=== PATIENT | male | born 1955 | race Two or more races ===

== ENCOUNTER 2019-06-10 06:39 | Inpatient (IN) | payer OTHER ==
[~2019-06-10] VITALS: Ht 165.1 cm; Wt 84.0 kg
--- NOTE | 2019-06-10 07:46 | NUR ---
BRINGS IN PT FOR C/O SUDDEN ONSET CONSTANT PAIN TO RT LOWER QUAD FOR TWO DAYS WITHMILD NAUSEA, +FEVERS/CHILLS, DENIES DYSURIA/HEMTURIA, ALTHOUGH URINE WAS CHRISTOPHER IN COLOR WHEN COLLECTED. RESP EVEN AND UNLABORED,ON RA @99%. ABD ROUND/SOFT, TENDER TO PALPATION. SKIN W/D/I
[2019-06-10 08:23] LABS: PLATELET COUNT 220 x10^3mcL (130-400); RED CELL DISTRIBUTION WIDTH 13.2 % (11.5-14.5)
[2019-06-10 08:28] LABS: CALCIUM 8.7 mg/dL (8.5-10.1); CARBON DIOXIDE 26.5 mmol/L (21-32); CHLORIDE SERUM 99 mmol/L (98-107); CREATININE SERUM 0.8 mg/dL (0.7-1.3); GFR1 > 60 mL/min; GLUCOSE SERUM 112 mg/dL (74-106); POTASSIUM SERUM 3.6 mmol/L (3.5-5.1); SODIUM SERUM 132 mmol/L (136-145)
[2019-06-10 08:35] LABS: BASOPHIL % 0 % (0-2)
[2019-06-10 08:41] LABS: ALKALINE PHOSPHATASE 130 U/L (46-116); ALT/SGPT 25 U/L (16-63); AST/SGOT 13 U/L (15-37); BILIRUBIN TOTAL 2.4 mg/dL (0.20-1.00); LIPASE 91 IU/L (73-393); T4(THYROXINE) 7.4 ug/dL (4.7-13.3); TOTAL PROTEIN, SERUM 7.3 g/dL (6.4-8.2)
[2019-06-10 08:42] LABS: ALBUMIN 2.8 g/dL (3.4-5.0)
--- NOTE | 2019-06-10 08:48 | NUR ---
REPORT GIVEN TO MAKEDA SANTANA, UPDATEDON STATUS, LABS AND VITALS. PT STABLE FOR TRANSFER.
--- NOTE | 2019-06-10 09:19 | NUR ---
RECEIVED PT FROM ER, VIA [facility]. PT A/A, BREATHING EQUAL/UNLABORED ON RA. PT STATES HE HAS PAIN TO HIS ABDOMEN. VITALS WNL. IV SITE WNL. BED IN LOW POSITION, CALL LIGHT IN REACH, SAFETY PRECAUTIONS IN PLACE, AT BEDSIDE. WILL CONTINUE TO MONITOR
[2019-06-10 09:24] VITALS: BP 99/61
[2019-06-10 09:32] LABS: microscopic required? YES
[2019-06-10 09:34] LABS: urine erythrocyte 1+ (NEGATIVE)
[2019-06-10 11:17] VITALS: BP 100/60
--- NOTE | 2019-06-10 11:43 | NUR ---
PT LYING IN BED A/A. BREATHING EQUAL/UNLABORED ON RA. NO ACUTE CHANGES. PT STATES HE HAS MILD PAIN THAT IS TOLERABLE. WILL CONTINUE TO MONITOR
[2019-06-10 16:30] VITALS: BP 108/64
--- NOTE | 2019-06-10 18:33 | NUR ---
PT LYING IN BED A/A. BREATHING EQUAL/UNLABORED ON RA. PT STATES HE HAS MILD PAIN TO RLQ, STATES HE DOES NOT WANT PAIN MEDS AT THIS TIME. IVF RUNNING, SITES WNL. BED IN LOW POSITION, CALL LIGHT IN REACH, SAFETY PRECAUTIONS IN PLACE, FAMILY AT BEDSIDE. WILL ENDORSE TO NIGHT NURSE
--- NOTE | 2019-06-10 19:25 | NUR ---
CARE ASSUMED FROM OUTGOING RN. PT RESTING COMFORTABLY IN BED. FAMILY AT BEDSIDE. NO ACUTE DISTRESS NOTED. EVEN AND UNLABORED RESPIRATIONS ON RA. ON TELE# [address] 97. IV PATENT RUNNING FLUIDS PER EMAR. NO C/O PAIN AT THIS TIME. BED IN LOWEST POSITION. SIDE RAILS UPX2. CALL LIGHT WITHIN REACH. WILL CONTINUE TO MONITOR.
[2019-06-10 19:40] VITALS: BP 108/64
--- NOTE | 2019-06-10 23:54 | NUR ---
PT AMBULATED TO THE RESTROOM WITH SLOW, STEADY GAIT. NO C/O HEADACHE OR DIZZINESS. C/O 5/10 ABD PAIN, MEDICATED PER EMAR. EVEN AND UNLABORED RESPIRATIONS ON RA. ON TELE# [address] 101. IVS PATENT AND INTACT RUNNING FLUIDS PER EMAR. NPO IN PLACE. BED IN LOWEST POSITION. SIDE RAILS UPX2. CALL LIGHT WITHIN REACH. WILL CONTINUE TO MONITOR.
[2019-06-11 05:20] VITALS: BP 108/62
--- NOTE | 2019-06-11 06:12 | NUR ---
PT SLEPT COMFORTABLY IN INTERVALS THROUGHOUT THE SHIFT. ALL NEEDS TENDED TO AND MET. ALL SCHEDULED MEDICATIONS GIVEN. C/O ABD PAIN MEDICATED PER EMAR. EVEN AND UNLABORED RESPIRATIONS ON RA. IV PATENT AND INTACT RUNNING FLUIDS PER EMAR. NPO IN PLACE. ON TELE # [address] 80. BED IN LOWEST POSITION. SIDE RAILS UPX2. CALL LIGHT WITHIN REACH. WILL ENDORSE TO ONCOMING SHIFT.
[2019-06-11 06:30] LABS: BASOPHIL % 0.3 % (0-2); PLATELET COUNT 234 x10^3mcL (130-400); RED CELL DISTRIBUTION WIDTH 13.1 % (11.5-14.5)
--- NOTE | 2019-06-11 07:07 | NUR ---
RECEIVED PT LYING IN BED A/A. BREATHING EQUAL/UNLABORED ON RA. PT HAS MILD PAIN TO RLQ OF ABDOMEN, STATES PAIN IS TOLERABLE. IVF RUNNING, SITE WNL. BED IN LOW POSITION, CALL LIGHT IN REACH, SAFETY PRECAUTIONS IN PLACE. WILL CONTINUE TO MONITOR
[2019-06-11 07:10] LABS: ALKALINE PHOSPHATASE 125 U/L (46-116); ALT/SGPT 22 U/L (16-63); AST/SGOT 16 U/L (15-37); CALCIUM 8.4 mg/dL (8.5-10.1); CARBON DIOXIDE 22.6 mmol/L (21-32); CHLORIDE SERUM 99 mmol/L (98-107); CREATININE SERUM 0.7 mg/dL (0.7-1.3); GFR1 > 60 mL/min; GLUCOSE SERUM 116 mg/dL (74-106); MAGNESIUM 2.3 mg/dL (1.8-2.4); POTASSIUM SERUM 3.4 mmol/L (3.5-5.1); SODIUM SERUM 130 mmol/L (136-145); TOTAL PROTEIN, SERUM 6.4 g/dL (6.4-8.2)
[2019-06-11 07:13] LABS: ALBUMIN 2.1 g/dL (3.4-5.0)
[2019-06-11 07:30] VITALS: BP 118/66
[2019-06-11 11:01] VITALS: BP 96/69
--- NOTE | 2019-06-11 11:50 | NUR ---
PT LYING IN BED A/A. BREATHING EQUAL/UNLABORED ON RA. NO ACUTE CHANGES OR DISTRESS. WILL CONTINUE TO MONITOR
[2019-06-11 16:02] VITALS: BP 123/80
--- NOTE | 2019-06-11 18:28 | NUR ---
PT LYING IN BED A/A. BREATHING EQUAL/UNLABORED ON RA. NO ACUTE PAIN/ DISTRESS. IVF RUNNINNG, SITES WNL. BED IN LOW POSITION, CALL LIGHT IN REACH, SAFETY PRECAUTIONS IN PLACE, FAMILY AT BEDSIDE. WILL ENDORSE TO NIGHT NURSE
--- NOTE | 2019-06-11 19:00 | NUR ---
CARE ASSUMED FROM OUTGOING RN. PT RESTING COMFORTABLY IN BED. NO ACUTE DISTRESS NOTED. EVEN AND UNLABORED RESPIRATIONS ON RA. ON TELE# [address] 106. IVS PATENT AND INTACT RUNNING FLUIDS PER EMAR. C/O SLIGHT DISCOMFORT TO ABD, NO PAIN MEDICATION NEEDED AT THIS TIME. TOLERATED CLEAR LIQUID DIET. BED IN LOWEST POSITION. SIDE RAILS UPX2. CALL LIGHT WITHIN REACH. WILL CONTINUE TO MONITOR.
[2019-06-11 19:06] VITALS: BP 120/78
--- NOTE | 2019-06-12 01:29 | NUR ---
C/O 09/08 ABD PAIN, MEDICATED PER EMAR. IVPB STARTED PER EMAR. EVEN AND UNLABORED RESPIRATIONS ON RA. ON TELE #[address] 89. BED IN LOWEST POSITION. SIDE RAILS UPX2. CALL LIGHT WITHIN REACH. WILL REASSESS FOR PAIN AND CONTINUE TO MONITOR.
[2019-06-12 03:56] VITALS: BP 99/66
--- NOTE | 2019-06-12 05:59 | NUR ---
PT SLEPT COMFORTABLY IN INTERVALS THROUGHOUT THE SHIFT. ALL NEEDS TENDED TO AND MET. ALL SCHEDULED MEDICATIONS GIVEN. C/O ABD PAIN MEDICATED PER EMAR. ON TELE# [address] 97[address] IVS PATENT AND INTACT RUNNING FLUIDS PER EMAR. EVEN AND UNLABORED RESPIRATIONS ON RA. BED IN LOWEST POSITION. SIDE RAILS UPX2. CALL LIGHT WITHIN REACH. WILL ENDORSE TO ONCOMING SHIFT.
[2019-06-12 06:52] LABS: BASOPHIL % 0.3 % (0-2); PLATELET COUNT 272 x10^3mcL (130-400); RED CELL DISTRIBUTION WIDTH 13.4 % (11.5-14.5)
--- NOTE | 2019-06-12 07:06 | NUR ---
RECEIVED PT LYING IN BED A/A. BREATHING EQUAL/UNLABORED ON RA. NO ACUTE PAIN/ DISTRESS. IVF RUNNING, SITES WNL. BED IN LOW POSITION, CALL LIGHT IN REACH, SAFETY PRECAUTIONS IN PLACE. WILL CONTINUE TO MONITOR
[2019-06-12 08:01] VITALS: BP 110/71
--- NOTE | 2019-06-12 11:48 | NUR ---
PT LYING IN BED A/A. BREATHING EQUAL/UNLABORED ON RA. NO ACUTE CHANGES/ DISTRESS. IVF RUNNING, SITE WNL. WILL CONTINUE TO MONITOR
[2019-06-12 12:01] VITALS: BP 112/77
[2019-06-12 16:20] VITALS: BP 125/78
--- NOTE | 2019-06-12 18:30 | NUR ---
PT LYING IN BED A/A. BREATHING EQUAL/UNLABORED ON RA. NO ACUTE PAIN/ DISTRESS. IVF RUNNING, SITE WNL. BED IN LOW POSITION, CALL LIGHT IN REACH, SAFETY PRECAUTIONS IN PLACE, AT BEDSIDE. WILL ENDORSE TO NIGHT NURSE
--- NOTE | 2019-06-12 19:05 | NUR ---
CARE ASSUMED FROM OUTGOING RN. PT RESTING COMFORTABLY IN BED. AT BEDSIDE. NO ACUTE DISTRESS NOTED. EVEN AND UNLABORED RESPIRATIONS ON RA. ON TELE# [address] 86[address] IVS PATENT AND INTACT. NO C/O PAIN AT THIS TIME. BED IN LOWEST POSITION. SIDE RAILS UPX2. CALL LIGHT WITHIN REACH. WILL CONTINUE TO MONITOR.
[2019-06-12 19:10] VITALS: BP 115/75
--- NOTE | 2019-06-13 00:34 | NUR ---
PT RESTING COMFORTABLY IN BED WITH EYES CLOSED. NO ACUTE DISTRESS NOTED. EVEN AND UNLABORED RESPIRATIONS ON RA. ON TELE# [address] 90. IVS PATENT AND INTACT. BED IN LOWEST POSITION. SIDE RAILS UPX2. CALL LIGHT WITHIN REACH. WILL CONTINUE TO MONITOR.
[2019-06-13 04:58] VITALS: BP 115/71
--- NOTE | 2019-06-13 06:16 | NUR ---
PT RESTING COMFORTABLY IN INTERVALS THROUGHOUT THE SHIFT. ALL NEEDS TENDED TO AND MET. ALL SCHEDULED MEDICATIONS GIVEN. EVEN AND UNLABORED RESPIRATIONS ON RA. ON TELE# [address] 90. IV TO RFA PATENT AND INTACT. LAC LEAKING, DC'ED, CATHETER INTACT, NO BLEEDING NOTED. C/O ABD PAIN MEDICATED PER EMAR. BED IN LOWEST POSITION. SIDE RAILS UPX2. CALL LIGHT WITHIN REACH. WILL ENDORSE TO ONCOMING SHIFT.
[2019-06-13 06:50] LABS: BASOPHIL % 0.1 % (0-2); PLATELET COUNT 300 x10^3mcL (130-400); RED CELL DISTRIBUTION WIDTH 13.6 % (11.5-14.5)
--- NOTE | 2019-06-13 07:00 | NUR ---
AAO TIMES 4. TELE # 24 SR. LUNGS CTA. NO SOB. O2 SAT ON RA 95%. BS'S ACTIVE TIMES 4. QUEZADA STRONG. IV SITE CDI. COOPERATIVE AND PLEASANT. NO SOB. DENIES DISCOMFORT. PERIPHERAL PULSES PALPABLE. NO EDEMA.
[2019-06-13 07:06] LABS: ALKALINE PHOSPHATASE 177 U/L (46-116); ALT/SGPT 15 U/L (16-63); AST/SGOT 15 U/L (15-37); BILIRUBIN TOTAL 0.74 mg/dL (0.20-1.00); CALCIUM 8.2 mg/dL (8.5-10.1); CARBON DIOXIDE 25.1 mmol/L (21-32); CHLORIDE SERUM 100 mmol/L (98-107); CREATININE SERUM 0.7 mg/dL (0.7-1.3); GFR1 > 60 mL/min; GLUCOSE SERUM 122 mg/dL (74-106); MAGNESIUM 1.9 mg/dL (1.8-2.4); POTASSIUM SERUM 3.3 mmol/L (3.5-5.1); SODIUM SERUM 136 mmol/L (136-145); TOTAL PROTEIN, SERUM 6.5 g/dL (6.4-8.2)
[2019-06-13 07:08] LABS: ALBUMIN 2.2 g/dL (3.4-5.0)
[2019-06-13 09:00] VITALS: BP 126/70
[2019-06-13] MEDS ORDERED: CIPRO500 MG PO (09:31)
[2019-06-13] MEDS ORDERED: FLA500 PO (09:31)
[2019-06-13 12:13] VITALS: BP 118/66
[2019-06-13 13:01] VITALS: BP 118/66
--- NOTE | 2019-06-13 16:10 | NUR ---
DR CORTES AWARE DR CASE SURGEON WAS RECOMENDING STAYING FOR ANTIBIOTICS AND LABS FOR TOMORROW DUE TO WBC INCREASING AND TEMP YESTERDAY OF 100.2.
--- NOTE | 2019-06-13 16:32 | NUR ---
DR CORTES SAID TO HOLD TH DISCHARGE FOR TODAY.
[2019-06-13 16:43] VITALS: BP 114/71
--- NOTE | 2019-06-13 18:07 | NUR ---
AAO TIMES 4. TELE # 24 SR. NO C/O PAIN. TOLERATING FULL LIQUID DIET. FAMILY PRESENT, SUPPORTIVE. IV SITE CDI. COOPERATIVE.
--- NOTE | 2019-06-13 19:58 | NUR ---
PT CURRENTLY RESTING IN BED, NO ACUTE DISTRESS. A/O X4. TELE #24 SHOWING SINUS RHYTHM, DENIES CHEST PAIN. PULSES PALPABLE IN ALL EXTREMITIES, NO EDEMA NOTED. LUNG SOUNDS CTA BILATERALLY, DENIES SOB. BOWEL SOUNDS ACTIVE, LAST BM 06/13/19. VOIDING WELL. AMBULATORY. SKIN INTACT. IV PATENT AND INTACT. BED IN LOWEST POSITION, SIDE RAILS UP X2, CALL LIGHT WITHIN REACH. WILL CONTINUE TO MONITOR.
[2019-06-13 20:49] VITALS: BP 104/71
--- NOTE | 2019-06-14 00:19 | NUR ---
PT STILL AWAKE. DENIES ANY PAIN. RT FOOT DRSG C&D&I AND ELEVATED ON 2 PILLOWS. ZOSYN IVPB ORDERED, HL INTACT AND FLUSHES WELL. CALL LIGHT WITHIN REACHED.
--- NOTE | 2019-06-14 01:37 | NUR ---
PT CURRENTLY RESTING IN BED, NO ACUTE DISTRESS. WILL CONTINUE TO MONITOR.
[2019-06-14 06:00] VITALS: BP 107/64
--- NOTE | 2019-06-14 06:25 | NUR ---
PT SLEPT PERIODICALLY THROUGHOUT NIGHT, NO ACUTE DISTRESS. ALL NEEDS MET AND ATTENDED TO. NO SIGNIFICANT CHANGES. IV PATENT AND INTACT. BED IN LOWEST POSITION, SIDE RAILS UP X2, CALL LIGHT WITHIN REACH. WILL ENDORSE CARE TO ONCOMING NURSE.
[2019-06-14 06:46] LABS: BASOPHIL % 0.2 % (0-2); PLATELET COUNT 346 x10^3mcL (130-400); RED CELL DISTRIBUTION WIDTH 13.7 % (11.5-14.5)
[2019-06-14 06:58] LABS: ALKALINE PHOSPHATASE 180 U/L (46-116); ALT/SGPT 36 U/L (16-63); AST/SGOT 42 U/L (15-37); BILIRUBIN TOTAL 0.7 mg/dL (0.20-1.00); CALCIUM 8.5 mg/dL (8.5-10.1); CARBON DIOXIDE 29.1 mmol/L (21-32); CHLORIDE SERUM 100 mmol/L (98-107); CREATININE SERUM 0.8 mg/dL (0.7-1.3); GFR1 > 60 mL/min; GLUCOSE SERUM 136 mg/dL (74-106); SODIUM SERUM 135 mmol/L (136-145); TOTAL PROTEIN, SERUM 6.7 g/dL (6.4-8.2)
[2019-06-14 07:03] LABS: ALBUMIN 2.2 g/dL (3.4-5.0)
[2019-06-14 08:33] VITALS: BP 105/69
--- NOTE | 2019-06-14 08:41 | NUR ---
AAO TIMES 4. TELE # 24 SR. LUNGS CTA. NO SOB. O2 SAT ON RA 96%. BS'S ACTIVE TIMES 4. QUEZADA STRONG, BRP SELF. PERIPHERAL PULSES PALBLE, NO EDEMA. IV SITE CDI. COOPERATIVE AND PLEASANT. NO C/O PAIN. TOLERATING FULL LIQUID DIET.
[2019-06-14 11:58] VITALS: BP 111/66
--- NOTE | 2019-06-14 15:38 | NUR ---
RECEIVED ORDER FOR PERCUTANEOUS DRAINAGE OF ABSCESS. PER DR CARLSON PERCUTANEOUS DRAINAGE NOT INDICATED IN THIS CASE FOR REASONS DETAILED IN THE CT REPORT SUMMARY. NOTIFIED PATIENT'S NURSE EDWARDO. GAVE PHONE NUMBER OF ORDERING PHYSICIAN TO DR CARLSON.
--- NOTE | 2019-06-14 15:49 | NUR ---
DR CARLSON SPOKE WITH ORDERING PHYSICIAN BY PHONE.
[2019-06-14 16:34] VITALS: BP 109/68
--- NOTE | 2019-06-14 17:38 | NUR ---
AAO TIMES 4. TELE # 24 SR. NO C/O PAIN. NO SOB. IV SITE RUE PATENT, CDI. BOLUS OF [address] PRIOR TO [address] ABDOMEN ORDERED. NO C/O PAIN. NPO FOR CT ABD. COOPERATIVE.
--- NOTE | 2019-06-14 20:12 | NUR ---
SHIFT REASSESSMENT DONE.PATIENT ALERT AND OREINTED.BREATHING EASY.CT PELVIS TONIGHT.BOLUS ALMOST DONE.PETER [address] [phone].HEPLOCK INTACT.R UPPER ARM.FAMILY STILL AT BEDSIDE,SUPPORTIVE OF CARE.CALL LIGHT IN REACH.
[2019-06-14 20:40] VITALS: BP 115/67
--- NOTE | 2019-06-14 22:23 | NUR ---
PATIENT WAITING TO BE RESEARCH INTERN CT.BY 10 AM,[facility]AG WILSON.
--- NOTE | 2019-06-14 22:33 | NUR ---
ATB INFUSED WITH NO INCIDENT CIPRO,FLAGYL SCHEDULE AT 0200 TONIGHT.
--- NOTE | 2019-06-15 00:53 | NUR ---
ATB GIVEN EARLY,ALSO GIVEBN URINAL,REMINDED TO USE IT AT BEDSIDE,I JUST EMPTY IT,NO NEED TO GET UP UNLESS HE GO NUMBER TWO.IVF INFUSING.IV SITE GOOD.
--- NOTE | 2019-06-15 01:10 | NUR ---
TO CT VIA WHEELCHA[facility].
--- NOTE | 2019-06-15 01:24 | NUR ---
BACK FROM CT,WILL CONNECT IV/ATB.
[2019-06-15 05:20] VITALS: BP 104/64
[2019-06-15 06:01] LABS: BASOPHIL % 0.1 % (0-2); PLATELET COUNT 360 x10^3mcL (130-400)
[2019-06-15 06:27] LABS: CALCIUM 8.5 mg/dL (8.5-10.1); CARBON DIOXIDE 28.7 mmol/L (21-32); CHLORIDE SERUM 100 mmol/L (98-107); CREATININE SERUM 0.8 mg/dL (0.7-1.3); GFR1 > 60 mL/min; GLUCOSE SERUM 109 mg/dL (74-106); POTASSIUM SERUM 3.6 mmol/L (3.5-5.1); SODIUM SERUM 135 mmol/L (136-145)
--- NOTE | 2019-06-15 06:54 | NUR ---
SLEPT WELL AT NIGHT.I AND O RECORDED.WILL ENDORSE TO NEXT SHIFT.
--- NOTE | 2019-06-15 06:56 | NUR ---
WILL ENDORSE TO Yemi ASHFORD
--- NOTE | 2019-06-15 07:33 | NUR ---
RECEIVED PT LYING IN BED A/A. BREATHING EQUAL/UNLABORED ON RA. NO ACUTE PAIN/ DISTRESS. IVF RUNNING, SITE WNL. BED IN LOW POSITION, CALL LIGHT IN REACH, SAFETY PREACAUTIONS IN PLACE. WILL CONTINUE TO MONITOR
[2019-06-15 07:55] VITALS: BP 117/74
[2019-06-15 11:35] VITALS: BP 102/65
--- NOTE | 2019-06-15 12:08 | NUR ---
PT SITTING UP IN BED A/A. BREATHING EQUAL/UNLABORED ON RA. NO ACUTE CHANGES/ DISTRESS. IVF RUNNING, SITE WNL. SAFETY PRECAUTIONS IN PLACE. WILL CONTINUE TO MONITOR
[2019-06-15 14:45] VITALS: BP 109/74
--- NOTE | 2019-06-15 14:45 | NUR ---
RECEIVED PT FROM IR NURSE. PT AWAKE AND DROWSY, PT EASILY AROUSABLE. BREATHING EQUAL/UNLABORED ON RA. NO ACUTE PAIN/ DISTRESS. VITALS SIGNS STABLE. IVF RUNNING AT 80ML/HR, SITE WNL. WILL CONTINUE TO MONITOR
[2019-06-15 18:00] VITALS: BP 107/63
--- NOTE | 2019-06-15 18:13 | NUR ---
PT LYING IN BED A/A. BREATHING EQUAL/UNLABORED ON RA. NO ACUTE PAIN/ DISTRESS. IVF RUNNING, SITE WNL. DRAINAGE TO R. SIDE OF ABD DRAINING THICK/ LIGHT BROWN DRAINAGE, TO GRAVITY. BED IN LOW POSITION, CALL LIGHT IN REACH, SAFETY PRECAUTIONS IN PLACE, FAMILY AT BEDSIDE. WILL ENDORSE TO NIGHT NURSE
--- NOTE | 2019-06-15 19:15 | NUR ---
CARE ASSUMED FROM OUTGOING RN. PT RESTING COMFORTABLY IN BED. FAMILY AT BEDSIDE. NO ACUTE DISTRESS NOTED. EVEN AND UNLABORED RESPIRATIONS ON RA. ON TELE# [address] 84. IV PATENT AND INTACT RUNNING FLUIDS PER EMAR. NO C/O PAIN AT THIS TIME. PIGTAIL DRAINAGE CATHETER IN RLQ ABD IN PLACE AND PATENT DRAINING THICK LIGHT BROWN OUTPUT, DRESSING CDI. BED IN LOWEST POSITION. SIDE RAILS UPX2. CALL LIGHT WITHIN REACH. WILL CONTINUE TO MONITOR.
[2019-06-15 19:22] VITALS: BP 98/63
--- NOTE | 2019-06-16 00:22 | NUR ---
PT RESTING COMFORTABLY IN BED. NO ACUTE DISTRESS NOTED. EVEN AND UNLABORED RESPIRATIONS ON RA. ON TELE# [address] 80. IV PATENT AND INTACT RUNNING FLUIDS PER EMAR. C/O 07/11 ABD PAIN MEDICATED PER EMAR. NPO EXCEPT MEDS IN PLACE. RLQ PIGTAIL DRAINAGE CATHETER PATENT DRAINING BROWNISH OUTPUT. 425ML YELLOW URINE EMPTIED FROM URINAL. BED IN LOWEST POSITION. SIDE RAILS UPX2. CALL LIGHT WITHIN REACH. WILL REASSESS FOR PAIN AND CONTINUE TO MONITOR.
[2019-06-16 05:24] VITALS: BP 98/60
--- NOTE | 2019-06-16 06:23 | NUR ---
PT RESTED COMFORTABLY IN INTERVALS THROUGHOUT THE SHIFT. ALL NEEDS TENDED TO AND MET. ALL SCHEDULED MEDICATIONS GIVEN. C/O ABD PAIN MEDICATED PER EMAR. ON TELE# [address] SR 68. IV PATENT RUNNING FLUIDS PER EMAR. RLQ PIGTAIL DRAINAGE CATHETER PATENT WITH 10ML BROWNISH OUTPUT EMPTIED, DRESSING CDI. BED IN LOWEST POSITION. SIDE RAILS UPX2. CALL LIGHT WITHIN REACH. WILL ENDORSE TO ONCOMING SHIFT.
--- NOTE | 2019-06-16 07:09 | NUR ---
RECEIVED PT LYING IN BED A/A. BREATHING EQUAL/UNLABORED ON RA. NO ACUTE PAIN/ DISTRESS. IVF RUNNING AT 80ML/HR, SITE WNL. DRAIN TO R. SIDE OF ABD DRAINING TO GRAVITY WITH LIGHT BROWN/ THICK DRAINAGE. BED IN LOW POSITION, CALL LIGHT IN REACH, SAFETY PRECAUTIONS IN PLACE, WILL CONTINUE TO MONTIOR
[2019-06-16 08:20] VITALS: BP 100/63
[2019-06-16 09:30] LABS: BASOPHIL % 0.4 % (0-2); RED CELL DISTRIBUTION WIDTH 13.9 % (11.5-14.5)
[2019-06-16 09:37] LABS: PLATELET COUNT 402 x10^3mcL (130-400)
[2019-06-16 10:11] LABS: CHLORIDE SERUM 102 mmol/L (98-107); POTASSIUM SERUM 3.8 mmol/L (3.5-5.1); SODIUM SERUM 136 mmol/L (136-145)
[2019-06-16 10:12] LABS: ALBUMIN 2.2 g/dL (3.4-5.0); ALKALINE PHOSPHATASE 155 U/L (46-116); ALT/SGPT 34 U/L (16-63); AST/SGOT 24 U/L (15-37); BILIRUBIN TOTAL 0.5 mg/dL (0.20-1.00); CALCIUM 8.4 mg/dL (8.5-10.1); CARBON DIOXIDE 28.4 mmol/L (21-32); CREATININE SERUM 0.7 mg/dL (0.7-1.3); GFR1 > 60 mL/min; GLUCOSE SERUM 114 mg/dL (74-106); TOTAL PROTEIN, SERUM 6.8 g/dL (6.4-8.2)
[2019-06-16 12:20] VITALS: BP 100/62
--- NOTE | 2019-06-16 12:33 | NUR ---
PT UP OOB, WALKING AROUND THE UNIT. PT BREATHING EQUAL/UNLABORED ON RA. NO ACUTE CHANGES/ DISTRESS. IVF RUNNING, SITE WNL. DRAIN TO R. SIDE OF ABD, DRAINING TO GRAVITY. SAFETY PRECAUTIONS IN PLACE. WILL CONTINUE TO MONITOR
[2019-06-16 15:52] VITALS: BP 117/69
--- NOTE | 2019-06-16 18:19 | NUR ---
PT LYING IN BED A/A. BREATHING EQUAL/UNLABORED ON RA. NO ACUTE PAIN/ DISTRESS. IVF RUNNING AT 80ML/HR, SITE WNL. ABD. DRAINAGE IN PLACE, DRAINING TO GRAVITY. BED IN LOW POSITION, CALL LIGHT IN REACH, SAFETY PRECAUTIONS IN PLACE, FAMILY AT BEDSIDE. WILL ENDORSE TO NIGHT NURSE
--- NOTE | 2019-06-16 19:00 | NUR ---
CARE ASSUMED FROM OUTGOING RN. PT RESTING COMFORTABLY IN BED. AT BEDSIDE. NO ACUTE DISTRESS NOTED. EVEN AND UNLABORED RESPIRATIONS ON RA. ON TELE# [address] 85. IV PATENT AND INTACT RUNNING FLUIDS PER EMAR. NO C/O PAIN AT THIS TIME. RLQ PIGTAIL DRAINAGE CATHETER PATENT IN PLACE, BROWNISH OUTPUT NOTED, DRESSING CDI. BED IN LOWEST POSITION. SIDE RAILS UPX2. CALL LIGHT WITHIN REACH. WILL CONTINUE TO MONITOR.
[2019-06-16 19:30] VITALS: BP 102/66
--- NOTE | 2019-06-17 | NUR ---
PT RESTING COMFORTABLY IN BED WITH EYES CLOSED. NO ACUTE DISTRESS NOTED. EVEN AND UNLABORED RESPIRATIONS ON RA. ON TELE# 24 READ[address] SR 65. IV PATENT AND INTACT RUNNING FLUIDS PER EMAR. RLQ PIGTAIL CATHETER DRAINING BROWNISH/YELLOW OUTPUT. BED IN LOWEST POSITION. SIDE RAILS UPX2. CALL LIGHT WITHIN REACH. WILL CONTINUE TO MONITOR.
[2019-06-17 05:39] VITALS: BP 103/67
--- NOTE | 2019-06-17 06:16 | NUR ---
PT RESTED COMFORTABLY IN INTERVALS THROUGHOUT THE SHIFT. ALL NEEDS TENDED TO AND MET. ALL SCHEDULED MEDICATIONS GIVEN. C/O PAIN TO DRAINAGE SITE MEDICATED PER EMAR. EVEN AND UNLABORED RESPIRATIONS ON RA. ON TELE# 24 READING NSR. IV PATENT AND INTACT RUNNING FLUIDS PER EMAR. 5ML BROWNISH/YELLOW OUTPUT COLLECTED FROM RLQ PIGTAIL DRAINAGE CATHETER, DRESSING CDI. BED IN LOWEST POSITION. SIDE RAILS UPX2. CALL LIGHT WITHIN REACH. WILL ENDORSE TO ONCOMING SHIFT.
--- NOTE | 2019-06-17 07:30 | NUR ---
PATIENT IS A&OX4, FOLLOWS COMMANDS AND COOPERATES WELL. TELE #24, NSR. PERIPHERAL PULSES PALPABLE W/ NO SIGNS OF EDEMA. LUNG SOUNDS CTA BILATERALLY, ON RA, O2 SAY 96%. NORMOACTIVE BSX4. VOIDS WELL. AMBULATORY. DRAIN ON R ABD DRAINING THICK LIGHT BROWN DRAINAGE MINIMALLY. DENIES ANY PAIN AT THIS TIME. IV SITE IS CDI. WILL CONTINUE TO MONITOR.
[2019-06-17 07:40] VITALS: BP 113/72
[2019-06-17 08:40] LABS: BASOPHIL % 0.3 % (0-2); RED CELL DISTRIBUTION WIDTH 13.3 % (11.5-14.5)
[2019-06-17 09:09] LABS: PLATELET COUNT 411 x10^3mcL (130-400)
--- NOTE | 2019-06-17 11:30 | NUR ---
Initial Nutrition Assessment: 232T/B JEFF HOLT MR Dx: RLQ, diverticulitis PMHx: none PSHx: none Labs: (06/16) BG 114H, ALB 2.2L, HGB 12.9L Meds: D 5%, flagyl, morphine, zofran Diet: Clear liquid PO intake since admission: (06/16) dinner 60%, lunch 100%, (06/15) NPO, (06/14) dinner, lunch 75%, breakfast 85% Ht: 165.1 cm (65") Wt: 84 kg (185#) BMI: 30.8 kg/m2 Bed scale: 84 kg IBW: 136# (62 kg) %IBW: 136 UBW: 185# Age: 63/M Food Allergies: NKFA Skin: pigtail drainage cath to RLQ Prabhjot: 21 Edema: none GI: pigtail drainage cath to RLQ draining brown/ yellow output Last BM: 06/14 Per H&P, Pt is a 63 YO M with no significant PMHx who presented with 2 days of RLQ abd pain, severe in intensity. RD Note (06/17): Patient was alert and oriented and said that he does not have any N/V/D/C at this time and is drinking clear liquids. He also said that he drinks ONS Ensure clear. Per monorail charger operatorDr. Clint Ojeda wants patient to be on clear liquid diet for today. Per progress note (06/16), microerforated diverticulitis and phlegmon involving the proximal ascending colon. Evolving abscess s/p drain 06/15 by IR. Problem with: N/V/D/C: none Problems with: Chewing: Swallowing: none Current appetite: good Recent wt change: none %wt change: n/a Vitamin/Supplement use: none Special diet at home: Regular Physical activity: sedentary Nutrition education given: none at this time Food-drug interactions: none Education given: n/a Estimated Nutritional Needs Based on ideal body weight (62 kg) Energy: 5250-7434 kcal/day (30-35 kcal/kg for inflammation, drainage) Protein: 74-86 g/day (1.2-1.4 g/kg for inflammation, possible sx) Fluid: 5518-0078 mL/day (1 mL/kcal) Nutrition Diagnosis: 1. Increased nutrient needs related to increased metabolic demands as evidenced by pigtail drain, diverticulitis, possible Sx. Intervention 1. When medically appropriate, recommend progressing to full liquid diet. Monitor/Evaluate Goal: PO intake at least 75% of estimated needs Monitor: PO intake, Labs, GI function F/U in 3-5 days as moderate risk 06/20-
--- NOTE | 2019-06-17 11:30 | NUR ---
1. When medically appropriate, recommend progressing to full liquid diet.
[2019-06-17 12:00] VITALS: BP 109/65
[2019-06-17 12:55] VITALS: BP 109/65
--- NOTE | 2019-06-17 13:11 | NUR ---
CALLED DR. CASE TO CONFIRM THAT PATIENT IS OKAY TO BE DISCHARGED WITH [facility]. MD INQUIRED ABOUT PT'S WBC. STATED THAT PATIENT IS OKAY TO BE DISCHARGED. ALSO STATED THAT PATIENT IS TO HAVE A FOLLOW-UP APPOINTMENT IN A WEEK FROM DISCHARGE DATE. NO FURTHER ORDERS AT THIS TIME.
[2019-06-23 15:21] VITALS: Ht 165.1 cm; Wt 84.0 kg
== END 2019-06-17 13:45 | disposition home health service (06) | DRG 871 ==
LOC: ED 06:39 → DU 08:13 → MU 06-17 10:44
PROVIDERS: Emergency Medicine; Internal Medicine; Internal Medicine Pulmonary Disease; ADMIT Internal Medicine Pulmonary Disease
DX: A41.9 Sepsis, unspecified organism (principal); K65.8 Other peritonitis; K57.20 Diverticulitis of large intestine with perforation and abscess without bleeding; E87.1 Hypo-osmolality and hyponatremia; E44.0 Moderate protein-calorie malnutrition; E86.0 Dehydration; E87.6 Hypokalemia; Z68.30 Body mass index [BMI] 30.0-30.9, adult
CPT/HCPCS: 32557; 87804; 90658; 90732; C9113; G0378; J0744; J1650; J1956; J2001; J2250; J2270; J2405; J3010; J3480; J3490; J7030; J7040; J7042; Q0092; Q9966; Q9967

== ENCOUNTER 2019-08-11 08:54 | Day surgery (SDC) | payer OTHER ==
[~2019-08-11] VITALS: Ht 162.6 cm; Wt 83.9 kg
[~2019-08-11 08:54] MED LIST: CIPRO500 MG PO; FLA500 PO
[2019-08-11 09:39] VITALS: BP 103/66
[2019-08-11 13:50] VITALS: BP 107/69
== END 2019-08-11 13:15 | disposition home or self-care (01) ==
LOC: DS 08:54 → GI 10:30 → OR 10:30 → DS 13:15
DX: Z12.11 Encounter for screening for malignant neoplasm of colon (principal); K57.30 Diverticulosis of large intestine without perforation or abscess without bleeding; K64.8 Other hemorrhoids; E78.00 Pure hypercholesterolemia, unspecified; Z87.19 Personal history of other diseases of the digestive system; Z88.0 Allergy status to penicillin
CPT/HCPCS: 45378; J1200; J1610; J2250; J2310; J3010; J3490